=== PATIENT | female | born 1965 ===

== ENCOUNTER 2020-11-30 14:28 | Emergency (ER) | payer BC ==
[2020-11-30] MEDS ORDERED: Acetaminophen/HYDROcodone 325-5 MG Tab PO ONE (16:35)
--- NOTE | 2020-11-30 16:35 | EDM.PDOC ---
ED HPI GENERAL MEDICAL PROBLEM - General Chief Complaint: ENT Problem Stated Complaint: SEVERE REACTION AFTER DENTAL VISIT EXTREME PAIN Time Seen by Provider: 11/30/20 16:10 Source of Information: Reports: Patient, RN, RN Notes Reviewed, Other ([place] PDMP) History Limitations: Reports: No Limitations - History of Present Illness INITIAL COMMENTS - FREE TEXT/NARRATIVE: Radha is a 55 y/o female who presents to the ED via personal vehicle with complaints of dental pain. The patient reports she underwent a root canal on tooth 19 with a local dentist three days ago. Today, she was receiving a dental lidocaine block which caused her severe pain into her left lower jaw. She was told her root canal could not be performed due to calcifications of her vessels and she will be referred to a specialist in [place] with an appointment 5 days from now. She feels her pain is not controlled following her dental procedure. She has been instructed to take acetaminophen and ibuprofen for her pain and was prescribed Vicodin 5-235mg x2 doses. The patient reports she has taken several doses of Tylenol with Aleve as well as 1/2 tab of the Vicodin, which has offered her no relief. She has contacted her dentist who states she will not prescribe her further narcotics. The patient denies fever, shaking chills, palpitations, nausea, vomiting, vision changes, cough, sore throat, throat tightness, ear pain/pressure, or sinus congestion. Left Oral/Mouth Pain Score (Numeric/FACES): 10 - Related Data Allergies Allergy/AdvReac Type Severity Reaction Status Date / Time acetaminophen [From Percocet] Allergy Stomach Verified 11/30/20 14:59 Upset oxycodone [From Percocet] Allergy Stomach Verified 11/30/20 14:59 Upset Home Meds: Home Meds Propranolol [Inderal] 10 mg PO DAILY 11/30/20 [History] buPROPion HCL [Wellbutrin Xl] 150 mg PO DAILY 11/30/20 [History] Past Medical History HEENT History: Reports: Impaired Vision Other HEENT History: wears glasses Cardiovascular History: Reports: None Respiratory History: Reports: None Gastrointestinal History: Reports: None Genitourinary History: Reports: None [employer]ER History: Reports: None Musculoskeletal History: Reports: None Neurological History: Reports: None Psychiatric History: Reports: Anxiety, Depression Endocrine/Metabolic History: Reports: Obesity/BMI 30+ Hematologic History: Reports: None Immunologic History: Reports: None Oncologic (Cancer) History: Reports: None Dermatologic History: Reports: None - Infectious Disease History Infectious Disease History: Reports: Mumps - Past Surgical History Head Surgeries/Procedures: Reports: None HEENT Surgical History: Reports: Tonsillectomy Female Surgical History: Reports: Breast Reduction, Section Social & Family History - Tobacco Use Tobacco Use Status *Q: Never Tobacco User Second Hand Smoke Exposure: No - Caffeine Use Caffeine Use: Reports: None - Recreational Drug Use Recreational Drug Use: No ED ROS ENT - Review of Systems Review Of Systems: Comprehensive ROS is negative, except as noted in HPI. ED EXAM, ENT - Physical Exam Exam: See Below Exam Limited By: No Limitations General Appearance: Alert, Obese, Other (Eyes closed upon assessment) Eye Exam: Bilateral Eye: Conjunctival Injection, EOMI, Normal Inspection, PERRL (3mm) Ears: Normal External Exam, Normal Canal, Hearing Grossly Normal, Normal TMs Nose: Normal Inspection, Normal Mucousa, No Blood Mouth/Throat: Dental Pain (To tooth 19), Dental Tenderness (To tooth 19, extending into left mandible). No: Dental Trauma, Drooling, Dry Mucous Membrane, Lip Swelling, Lip Ulcers, Muffled Voice, Oral Ulcers, Pharyngeal Erythema, Throat Pain, Throat Swelling, Tongue Swelling, Tonsillar Erythema, To nsillar Exudates, Tonsillar Swelling Head: Atraumatic, Normocephalic Neck: Normal Inspection, Supple, Non-Tender, Full Range of Motion. No: Lymphadenopathy (L), Lymphadenopathy (R) Respiratory/Chest: No Respiratory Distress, Lungs Clear, Normal Breath Sounds, No Accessory Muscle Use, Chest Non-Tender Cardiovascular: Normal Peripheral Pulses, Regular Rate, Rhythm, No Edema, No Gallop, No JVD, No Murmur, No Rub GI/Abdominal: Normal Bowel Sounds, Soft, Non-Tender, No Distention, No Abnormal Bruit, No Mass, Pelvis Stable (Female) Exam: Deferred Rectal (Female) Exam: Deferred Back: Normal Inspection, Full Range of Motion Extremities: Normal Inspection, Normal Range of Motion, Non-Tender, No Pedal Edema, Normal Capillary Refill Neurological: Alert, Oriented, CN II-XII Intact, Normal Cognition, Normal Gait, Normal Reflexes, No Motor/Sensory Deficits Psychiatric: Normal Mood, Flat Affect, Tearful Skin: Warm, Dry, Intact, Normal Color, No Rash. No: Cyanosis, Ecchymosis, Erythema, Jaundice, Mottled, Pallor, Petechiae Course - Vital Signs Last Recorded V/S: Last Vital Signs Temp 97.2 F 11/30/20 15:01 Pulse 62 11/30/20 15:01 Resp 18 11/30/20 15:01 BP 162/78 H 11/30/20 15:01 Pulse Ox 99 11/30/20 15:01 - Orders/Labs/Meds Meds: Medications Discontinued Medications Generic Name Dose Route Start Last Admin Trade Name Marva PRN Reason Stop Dose Admin Hydrocodone Bitart/Acetaminophen 1 tab 11/30/20 16:35 11/30/20 17:06 Acetaminophen/Hydrocodone 325-5 Mg Tab PO 11/30/20 16:36 1 tab ONETIME ONE Administration Lidocaine HCl 15 ml 11/30/20 16:36 11/30/20 17:06 Lidocaine 2% Viscous Solution 15 Ml Cup PO 11/30/20 16:37 15 ml ONETIME ONE Administration - Re-Assessments/Exams Free Text/Narrative Re-Assessment/Exam: 11/30/20 Findings of examination reviewed with patient. Will treat acute pain with Gary 5-325mg and viscous lidocaine 2%. Discussed supportive cares for dental pain. Patient instructed to follow up with primary dental home regarding ongoing pain management. Red flag signs and symptoms which would warrant reevaluation reviewed. Patient verbalized understanding and agreement with the plan of care. Departure - Departure Time of Disposition: 17:00 Disposition: Home, Self-Care 01 Condition: Good Clinical Impression: Pain, dental, Mandible pain - Discharge Information *PRESCRIPTION DRUG MONITORING PROGRAM REVIEWED*: Yes *COPY OF PRESCRIPTION DRUG MONITORING REPORT IN PATIENT JOY: Yes Instructions: Acute Pain, Adult Forms: ED Department Discharge Additional Instructions: 1.) Follow up with your primary care dentist for ongoing management of acute dental pain. 2.) Eat a liquid diet while experiencing severe dental pain. 3.) You may apply ice to the affected area, as pain and swelling persist; avoid heat. 4.) You may take ibuprofen (Advil/Motrin) 400mg every six hours, as pain and swelling persists. You may also take acetaminophen (Tylenol) 650mg every six hours, as pain persists. You may stagger these medications so you are receiving a dose every three hours. Sepsis Event Note (ED) - Evaluation Sepsis Screening Result: No Definite Risk - Focused Exam Vital Signs: Vital Signs Temp Pulse Resp BP Pulse Ox 11/30/20 15:01 97.2 F 62 18 162/78 H 99
[2020-11-30] MEDS ORDERED: Lidocaine 2% Viscous Solution 15 ML Cup PO ONE (16:36)
== END 2020-11-30 17:14 | disposition home or self-care (01) ==
LOC: DL.ED 14:28
DX: K08.89 Other specified disorders of teeth and supporting structures (principal); R68.84 Jaw pain; E66.9 Obesity, unspecified; Z68.41 Body mass index [BMI] 40.0-44.9, adult; Z88.5 Allergy status to narcotic agent; Z88.6 Allergy status to analgesic agent
CPT/HCPCS: 99282; 99283; A9270